=== PATIENT | female | born 1950 | race Caucasian/White ===

== ENCOUNTER 2016-05-16 22:08 | Observation (INO) | payer OTHER ==
[2016-05-16 22:19] VITALS: BP 147/78; PULSE 84; RESP 16; TEMP 97.7; O2SAT 98
--- NOTE | 2016-05-16 22:48 | ED PDOC ---
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 patient states she did not want to come but she got into a fight with her daughter over the daughter's boyfriend and then the party plan sales unit advisor were called and she was made to come in. She reports feels well however has a hx of asthma and chronic cough that seems to be getting worse with some phlegm. denies HI or SI. Past Medical History Reviewed: Historical Data, Nursing Documentation, Vital Signs Vital Signs: Last Vital Signs Temp 97.7 F 05/16/16 22:17 Pulse 84 05/16/16 22:17 Resp 16 05/16/16 22:17 BP 147/78 05/16/16 22:17 Pulse Ox 98 05/16/16 22:17 - Medical History PMH: Anxiety, Depression, Diabetes, HTN - Family History Family History: States: Unknown Family Hx - Living Arrangements Living Arrangements: With Family - Social History Current smoker - smoking cessation education provided: Yes Alcohol: Occasional Drugs: Denies (illegal drug use, does use benzo for anxiety) - Allergies Allergies/Adverse Reactions: Allergies Allergy/AdvReac Type Severity Reaction Status Date / Time No Known Allergies Allergy Verified 05/16/16 22:17 Review of Systems ROS Statement: Except As Marked, All Systems Reviewed And Found Negative Constitutional: Negative for: Fever Cardiovascular: Negative for: Chest Pain Respiratory: Positive for: Cough. Negative for: Shortness of Breath Gastrointestinal: Negative for: Nausea, Abdominal Pain Musculoskeletal: Negative for: Neck Pain Skin: Negative for: Rash Neurological: Negative for: Headache, Dizziness Physical Exam - Reviewed Nursing Documentation Reviewed: Yes Vital Signs Reviewed: Yes - Physical Exam Appears: Positive for: Well, Non-toxic Head Exam: Positive for: NORMAL INSPECTION Skin: Positive for: Normal Color, Warm, Dry Eye Exam: Positive for: Normal appearance Neck: Positive for: Normal, Painless ROM Cardiovascular/Chest: Positive for: Regular Rate, Rhythm. Negative for: Tachycardia Respiratory: Positive for: Normal Breath Sounds. Negative for: Wheezing Pulses-Dorsalis Pedis (L): 2+ Pulses-Dorsalis Pedis (R): 2+ Gastrointestinal/Abdominal: Positive for: Normal Exam, Soft. Negative for: Tenderness Back: Positive for: Normal Inspection. Negative for: L CVA Tenderness, R CVA Tenderness Extremity: Positive for: Normal ROM, Capillary Refill (normal ). Negative for: Tenderness Neurologic/Psych: Positive for: Alert, Oriented, Gait (normal ). Negative for: Motor/Sensory Deficits - ECG ECG Rhythm: Positive for: Normal QRS, Normal ST Segment, Sinus Rhythm (69) Interpretation Of Abn EKG: (+) LVH O2 Sat by Pulse Oximetry: 98 Pulse Ox Interpretation: Normal Medical Decision Making Medical Decision Makin65 y/o female with depression, alcohol ingestion, with no overt signs of intoxication brought in by ambulance for evaluation. - she states she took her normal dose of xanax this morning - labs - crisis - ekg - chest x ray for evaluation of cough FS- 94 EKG reviewed labs pending patient calm and cooperative, AAOx3. Disposition - Clinical Impression Clinical Impression: Depression, Alcohol ingestion - Patient ED Disposition Is Patient to be Admitted: Transfer of Care - Disposition Disposition: Transfer of Care Disposition Time: 00:00 Condition: STABLE Patient Signed Over To: Susie Burton Handoff Comments: pending labs, CXR, crisis and final disposition
[2016-05-17 00:04] LABS: BASO # 0.1 K/uL (0.0-0.2); BASO % 0.6 % (0.0-2.0); EOS # 0.1 K/uL (0.0-0.7); EOS % 0.9 % (0.0-4.0); HEMATOCRIT 38.1 % (34.0-47.0); LYMPH % 44.2 % (20.0-40.0); MEAN CELL VOLUME 87.8 fl (81.0-99.0); MEAN CORPUSCULAR HEMOGLOBIN 28.9 pg (27.0-31.0); MEAN PLATELET VOLUME 7.7 fl (7.2-11.7); MONO # 0.6 K/uL (0.0-0.8); MONO % 7.1 % (0.0-10.0); NEUT # 4.2 K/uL (1.8-7.0); NEUT % 47.2 % (50.0-75.0); NRBC % 0.2 % (0.0-0.0); RED CELL DISTRIBUTION WIDTH 13.7 % (11.5-14.5)
[2016-05-17 00:26] LABS: ALCOHOL SERUM 137 mg/dl (0-10); ALKALINE PHOSPHATASE 111 U/L (38-126); ALT/SGPT 72 U/L (9-52); AST/SGOT 99 U/L (14-36); BILIRUBIN,TOTAL 0.3 mg/dl (0.2-1.3); BLOOD UREA NITROGEN 14 mg/dl (7-17); CALCIUM 8.8 mg/dL (8.4-10.2); CARBON DIOXIDE 25 mmol/L (22-30); CHLORIDE 106 mmol/L (98-107); GFR AFRICAN-AMERICAN > 60; GLUCOSE,RANDOM 92 mg/dL (65-105); MAGNESIUM 2.4 MG/DL (1.6-2.3); POTASSIUM 4.1 MMOL/L (3.6-5.0); SODIUM 140 mmol/l (132-148); TOTAL PROTEIN 7.8 G/DL (6.3-8.2)
--- NOTE | 2016-05-17 01:39 | ED PDOC ---
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 patient states she did not want to come but she got into a fight with her daughter over the daughter's boyfriend and then the document review specialist were called and she was made to come in. She reports feels well however has a hx of asthma and chronic cough that seems to be getting worse with some phlegm. denies HI or SI. Upon my eval, Pt in bed asleep in NAD. CBC and COMp resulted WNL ETOH 137 Acetaminophen and Salicylates (-) 0300: Pt awake and alert, asking for some water. Tolerated PO without difficulty. 0400: Pt asleep in NAD. Awaiting crisis eval. Case endorsed to ED MD, Dr. Munoz, at 0600 pending diagnostic review and re- eval Disposition - Clinical Impression Clinical Impression: Depression, Alcohol ingestion - POA Present On Arrival: None - Disposition Disposition: Transfer of Care (dr. munoz) Disposition Time: 05:48 Condition: STABLE
--- NOTE | 2016-05-17 06:45 | ED PDOC ---
- Laboratory Results Result Diagrams: 05/16/16 23:36 05/16/16 23:36 - ECG O2 Sat by Pulse Oximetry: 98 Medical Decision Making Medical Decision Making: Pt s/o to provider by Monique MUNOZ at 6AM pending crisis eval Pt evaluated by crisis and found to be stable for dc home Dx Alcohol induced Mood D/O Stable Disposition - Clinical Impression Clinical Impression: Alcohol-induced mood disorder - POA Present On Arrival: None - Disposition Disposition: Routine/Home Disposition Time: 00:00 Condition: STABLE
--- NOTE | 2016-05-17 08:22 | RAD ---
HISTORY: cough COMPARISON: 07/24/2013 TECHNIQUE: Chest PA and lateral FINDINGS: LUNGS: No focal infiltrate. Minor interstitial changes are appreciated. PLEURA: Heart is not enlarged. Aorta is slightly uncoiled. No CHF is seen. CARDIOVASCULAR: Normal. OSSEOUS STRUCTURES: No significant abnormalities. VISUALIZED UPPER ABDOMEN: Normal. OTHER FINDINGS: None. IMPRESSION: No active disease.
--- NOTE | 2016-05-18 09:41 | CARD ---
APPROVED REPORT EKG Measurement Heart [id number] <Conclusion> Normal sinus rhythm Voltage criteria for left ventricular hypertrophy Abnormal ECG
== END 2016-05-17 06:46 | disposition home or self-care (01) ==
LOC: H.ER 22:08 → H.EROBSV 05-17 05:52
PROVIDERS: ADMIT Emergency Medicine; ATTEND Emergency Medicine
DX: F10.94 Alcohol use, unspecified with alcohol-induced mood disorder (principal); Y90.6 Blood alcohol level of 120-199 mg/100 ml; F17.200 Nicotine dependence, unspecified, uncomplicated; F32.9 Major depressive disorder, single episode, unspecified; I10 Essential (primary) hypertension; J45.909 Unspecified asthma, uncomplicated; F41.9 Anxiety disorder, unspecified; E11.9 Type 2 diabetes mellitus without complications